=== PATIENT | female | born 1995 | race Caucasian/White ===

== ENCOUNTER 2017-12-21 00:39 | Outpatient (CLI) | payer OTHER ==
[2017-12-20 18:08] LABS: HEMATOCRIT 32.2 % (36.0-46.0); HEMOGLOBIN 10.3 G/DL (11.9-15.5); MCH 27.9 PG (29.0-34.0); MCV 87.3 FL (83-99); PLATELET COUNT 242 K/uL (156-360); RBC DIS.WIDTH-CV 14.6 % (11.8-14.6); RED BLOOD COUNT 3.69 M/uL (3.80-5.20); WHITE BLOOD COUNT 14.9 K/uL (4.1-10.2)
[2017-12-20 18:18] LABS: CHLORIDE 104 mEq/L (99-109); POTASSIUM 3.9 mEq/L (3.7-5.4); SODIUM 136 mEq/L (136-147)
[2017-12-20 18:20] LABS: GLUCOSE 123 mg/dL (70-99)
[2017-12-20 18:24] LABS: CREATININE 0.7 mg/dL (0.6-1.3); GFR ESTIMATE (CALCULATED) > 59 mL/min/; UREA NITROGEN (BUN) 8 mg/dL (9-23)
[2017-12-20 20:49] LABS: APPEARANCE CLOUDY ((CLEAR)); BILIRUBIN NEGATIVE; BLOOD NEGATIVE; COLOR YELLOW ((YELLOW)); GLUCOSE (STRIP) 50; KETONES NEGATIVE; LEUKOCYTES NEGATIVE; NITRITE NEGATIVE; PROTEIN (STRIP) 30; SPECIFIC GRAVITY 1.014 (1.000-1.030); UROBILINOGEN 0.2 MG/DL (0.2-1.0)
[2017-12-20 21:17] LABS: AMPHETAMINE NEGATIVE (500 ng/mL); BARBITURATES NEGATIVE (200 ng/mL); BENZODIAZEPINES NEGATIVE (150 ng/mL); BUPRENORPHINE NEGATIVE (10 ng/mL); COCAINE NEGATIVE (150 ng/mL); METHADONE NEGATIVE (200 ng/mL); METHAMPHETAMINE NEGATIVE (500 ng/mL); OPIATES (MORPHINE) NEGATIVE (100 ng/mL); OXYCODONE NEGATIVE (100 ng/mL); PHENCYCLIDINE NEGATIVE (25 ng/mL); PROPOXYPHENE NEGATIVE (300 ng/mL); THC CANNABINOIDS PRESUMPTIVE POSITIVE (50 ng/mL); TRICYCLIC ANTIDEPRESSANTS NEGATIVE (300 ng/mL)
[2017-12-20 21:54] LABS: EPITHELIAL CELLS 2+ /HPF; RED BLOOD CELLS NONE SEEN /HPF (0-5); WHITE BLOOD CELLS NONE SEEN /HPF (0-5)
[2017-12-20 21:55] LABS: BACTERIA 1+ /HPF; MUCUS RARE /LPF
[2017-12-20 21:56] LABS: AMORPHOUS PHOSPHATE CRYSTALS 2+
[~2017-12-21] VITALS: Ht 152.4 cm; Wt 62.0 kg
[~2017-12-21 00:39] MED LIST: ANTIVERT25 MG PO; ZOFRAN ODT4 MG PO
[2017-12-21 00:53] VITALS: BP 118/71
[2017-12-21] MEDS ORDERED: PRENATAL TABLE1 EAC3 PO (01:09)
[2017-12-21] MEDS ORDERED: FOLIC ACID1 MG PO (01:10)
== END 2017-12-21 01:20 | disposition home or self-care (01) ==
LOC: EDSTATUS 00:39 → 2WEST 00:40 → EDSTATUS 00:40 → 2WEST 01:20
PROVIDERS: Physician Assistant
DX: O99.89 Other specified diseases and conditions complicating pregnancy, childbirth and the puerperium (principal); R55 Syncope and collapse; Z3A.26 26 weeks gestation of pregnancy
CPT/HCPCS: 59025; 80048; 81003; 84999; 85027; 93005; 99281; 99285; G0378; J7030

== ENCOUNTER 2018-02-07 15:01 | Outpatient (CLI) | payer OTHER ==
[~2018-02-07] VITALS: Ht 152.4 cm; Wt 74.8 kg
[~2018-02-07 15:01] MED LIST changes: +FOLIC ACID1 MG PO; +PRENATAL TABLE1 EAC3 PO
[2018-02-07 15:10] VITALS: BP 134/76
[2018-02-07] MEDS ORDERED: IRON325 M1 PO (15:26)
[2018-02-07 16:04] VITALS: BP 121/81
== END 2018-02-07 16:20 | disposition home or self-care (01) ==
LOC: LDRP-OP 15:01 → 2WEST 15:02 → LDRP-OP 05-03 09:04
DX: O26.893 Other specified pregnancy related conditions, third trimester (principal); Z3A.32 32 weeks gestation of pregnancy; O99.343 Other mental disorders complicating pregnancy, third trimester; F41.8 Other specified anxiety disorders
CPT/HCPCS: 59025; G0378

== ENCOUNTER 2018-03-24 06:17 | Inpatient (IN) | payer OTHER ==
[~2018-03-24] VITALS: Ht 152.4 cm; Wt 84.8 kg
[2018-03-24] VITALS (11 sets, daily range): BP systolic 121–142; BP diastolic 60–84
[~2018-03-24 06:17] MED LIST changes: +IRON325 M1 PO
[2018-03-24 07:33] LABS: BASOPHIL (%) 0.2 % (0-1); EOSINOPHIL (%) 0.1 % (0-5); HEMATOCRIT 36.3 % (36.0-46.0); IMMATURE GRANULOCYTE (%) 0.6 % (0.0-0.7); LYMPHOCYTE (%) 5.4 % (15-42); LYMPHOCYTE COUNT 0.9 K/uL (1.0-2.8); MCH 27.8 PG (29.0-34.0); MCHC 33.1 G/DL (30.0-36.0); MCV 84.2 FL (83-99); MONOCYTE (%) 4.8 % (3-12); MONOCYTE COUNT 0.8 K/uL (0-0.8); NEUTROPHIL (%) 88.9 % (45-76); NEUTROPHIL COUNT 15.3 K/uL (1.8-6.4); PLATELET COUNT 191 K/uL (156-360); RBC DIS.WIDTH-CV 15.2 % (11.8-14.6); RBC DIS.WIDTH-SD 46.7 % (39-53); RED BLOOD COUNT 4.31 M/uL (3.80-5.20); WHITE BLOOD COUNT 17.2 K/uL (4.1-10.2)
[2018-03-24 07:38] LABS: AMPHETAMINE NEGATIVE (500 ng/mL); BARBITURATES NEGATIVE (200 ng/mL); BENZODIAZEPINES NEGATIVE (150 ng/mL); BUPRENORPHINE NEGATIVE (10 ng/mL); COCAINE NEGATIVE (150 ng/mL); METHADONE NEGATIVE (200 ng/mL); METHAMPHETAMINE NEGATIVE (500 ng/mL); OPIATES (MORPHINE) NEGATIVE (100 ng/mL); OXYCODONE NEGATIVE (100 ng/mL); PHENCYCLIDINE NEGATIVE (25 ng/mL); PROPOXYPHENE NEGATIVE (300 ng/mL); THC CANNABINOIDS NEGATIVE (50 ng/mL); TRICYCLIC ANTIDEPRESSANTS NEGATIVE (300 ng/mL)
[2018-03-24] MEDS ORDERED: IBUPROFEN800 MG PO (20:53)
[2018-03-25 07:57] VITALS: BP 108/63
[2018-03-25 15:19] VITALS: BP 113/70
[2018-03-25 22:39] VITALS: BP 124/60
[2018-03-26 07:41] VITALS: BP 112/77
[2018-03-26 14:45] VITALS: BP 108/59
== END 2018-03-26 20:05 | disposition home or self-care (01) | DRG 775 ==
LOC: LDRP-OP 06:17 → 2WEST 06:18 → LDRP-OP 05-03 17:14
PROVIDERS: Advanced Practice Midwife
PROC: 10E0XZZ Delivery of Products of Conception, External Approach (ICD-10-PCS; principal; 2018-03-24)
DX: O76 Abnormality in fetal heart rate and rhythm complicating labor and delivery (principal); O77.0 Labor and delivery complicated by meconium in amniotic fluid; O69.81X0 Labor and delivery complicated by cord around neck, without compression, not applicable or unspecified; O22.43 Hemorrhoids in pregnancy, third trimester; O99.02 Anemia complicating childbirth; D64.9 Anemia, unspecified; O99.324 Drug use complicating childbirth; F19.90 Other psychoactive substance use, unspecified, uncomplicated; O99.343 Other mental disorders complicating pregnancy, third trimester; F32.9 Major depressive disorder, single episode, unspecified; F41.9 Anxiety disorder, unspecified; Z3A.38 38 weeks gestation of pregnancy; Z37.0 Single live birth
CPT/HCPCS: 85025; J2590; J7120